=== PATIENT | female | born 2000 | race Caucasian/White ===

== ENCOUNTER 2023-05-29 14:58 | Emergency (ER) | payer OTHER ==
[~2023-05-29] VITALS: Ht 162.6 cm; Wt 59.0 kg
[2023-05-29 15:10] VITALS: O2SAT 97
[2023-05-29] MEDS ORDERED: DOXY100T2 MT (17:57)
[2023-05-29] MEDS ORDERED: CEFTRIAXONE SODIUM 500 MG/VIAL IM ONE (18:00)
[2023-05-29 19:06] VITALS: BP 118/75; PULSE 88; RESP 19; TEMP 98.6
[2023-05-29 19:35] LABS: CLARITY URINE CLEAR (CLEAR); COLOR URINE YELLOW (YELLOW); GLUCOSE URINE NEGATIVE (NEGATIVE); KETONES URINE TRACE (NEGATIVE); LEUKOCYTE ESTERASE URINE NEGATIVE (NEGATIVE); NITRITE URINE NEGATIVE (NEGATIVE); OCCULT BLOOD URINE NEGATIVE (NEGATIVE); PH URINE 6.5 (4.5-8.0); PROTEIN URINE NEGATIVE (NEGATIVE); SPECIFIC GRAVITY URINE 1.018 (1.005-1.030)
== END 2023-05-29 19:15 | disposition home or self-care (01) ==
LOC: ER 14:58
DX: A74.9 Chlamydial infection, unspecified (principal); A54.9 Gonococcal infection, unspecified
CPT/HCPCS: 81003; 81025; 96372; 99283; J0696; Z7610 ×2

== ENCOUNTER 2023-07-08 22:08 | Emergency (ER) | payer OTHER ==
[~2023-07-08] VITALS: Ht 30.5 cm; Wt 0.5 kg
[~2023-07-08 22:08] MED LIST: DOXY100T2 MT
[2023-07-09 00:39] VITALS: O2SAT 98
[2023-07-09] MEDS ORDERED: DOXY100C5 MT (00:55)
[2023-07-09 00:59] LABS: CLARITY URINE CLEAR (CLEAR); COLOR URINE YELLOW (YELLOW); GLUCOSE URINE NEGATIVE (NEGATIVE); KETONES URINE NEGATIVE (NEGATIVE); LEUKOCYTE ESTERASE URINE NEGATIVE (NEGATIVE); NITRITE URINE NEGATIVE (NEGATIVE); OCCULT BLOOD URINE NEGATIVE (NEGATIVE); PROTEIN URINE NEGATIVE (NEGATIVE); SPECIFIC GRAVITY URINE 1.018 (1.005-1.030)
[2023-07-09] MEDS: CEFTRIAXONE SODIUM 500MG VIAL IM NR (01:29)
[2023-07-09] MEDS: CEFTRIAXONE SODIUM 500MG VIAL IM ONE (01:30)
[2023-07-09 01:37] VITALS: BP 128/83; PULSE 74; RESP 18; TEMP 98.4
== END 2023-07-09 01:41 | disposition home or self-care (01) ==
LOC: ER 22:08
DX: Z20.2 Contact with and (suspected) exposure to infections with a predominantly sexual mode of transmission (principal)
CPT/HCPCS: 86592; 99283; 81003; 81025; 96372; J0696; Z7610 ×2